=== PATIENT | male | born 1935 | race Caucasian/White ===

== ENCOUNTER 2018-02-14 20:38 | Emergency (ER) | payer MEDICARE, BC ==
[2018-02-14] MEDS ORDERED: Aspirin 81 mg CHEW TAB* 81 MG TAB.CHEW PO ONE (21:14)
[2018-02-14] MEDS ORDERED: Morphine INJ* 4 MG/ML 1 ML CARPUJECT IV ONE (21:14)
[2018-02-14] MEDS ORDERED: Ondansetron ODT TAB* 4 MG PO ONE (21:14)
[2018-02-14] MEDS ORDERED: Morphine VIAL* 4 MG/ML VIAL (1 ml vial) IV ONE ×2 (21:28→21:31)
[2018-02-14] MEDS ORDERED: Azithromycin IV(*) 500 MG in NS 0.9% 250 ML* 250 ML IVPB ONE (21:30)
[2018-02-14] MEDS ORDERED: cefTRIAXone(*) 1 GM in NS 0.9% 50 ML* 50 ML IVPB ONE (21:30)
[2018-02-14 21:42] LABS: ABS Basophils 0.1 10^3/ul (0-0.2); ABS Eosinophils 0.1 10^3/ul (0-0.6); ABS Lymphocytes 2.4 10^3/ul (1.0-4.8); ABS Monocytes 0.7 10^3/ul (0-0.8); ABS Neutrophils 7.7 10^3/ul (1.5-7.7); ABS Nucleated RBC 0 10^3/ul; Hematocrit 41 % (42-52); Hemoglobin 13.6 g/dl (14.0-18.0); Lymphocyte % 22.2 % (25-47); Mean Corpuscular HGB Conc 34 g/dl (31-36); Mean Corpuscular Hemoglobin 33 pg (27-31); Mean Corpuscular Volume 100 fL (80-94); Mean Platelet Volume 8.4 um3 (7.4-10.4); Nucleated Red Blood Cells % 0; Platelet Count 228 10^3/ul (150-450); Red Cell Distribution Width 14 % (10.5-15)
--- NOTE | 2018-02-14 21:44 | RAD ---
INDICATION: Left sided chest pain. COMPARISON: Comparison is made with a prior chest x-ray study from August 18, 2004. TECHNIQUE: A portable view of the chest was obtained. FINDINGS: The heart appears within normal limits in size. There is a moderate size infiltrate at the left lung base and a small left pleural effusion. The right lung appears clear. No pneumothorax is seen. There is lucency at the base of the neck on the left side possibly representing subcutaneous emphysema. IMPRESSION: 1. LEFT BASILAR INFILTRATE AND PLEURAL EFFUSION. 2. POSSIBLE SUBCUTANEOUS EMPHYSEMA AT THE BASE OF THE NECK ON THE LEFT SIDE.
[2018-02-14 21:54] LABS: EGFR Non-African American 54.6 (>60)
[2018-02-14] MEDS ORDERED: Iodixanol* (CONTRAST) 320 MG/ML 100 ML SDV IV ONE (22:14)
[2018-02-14] MEDS ORDERED: Propofol* 100 ML ONE (22:41)
[2018-02-14] MEDS ORDERED: Etomidate* 2 MG/ML 20 ML VIAL (40 MG) ONE (22:42)
[2018-02-14] MEDS ORDERED: Succinylcholine* 20 MG/ML 10 ML VIAL ONE (22:43)
[2018-02-14] MEDS ORDERED: Succinylcholine* 20 MG/ML 10 ML VIAL IV ONE (22:45)
[2018-02-14] MEDS ORDERED: Etomidate* 2 MG/ML 10 ML VIAL IV ONE (22:45)
[2018-02-14 22:59] LABS: INR 0.86 (0.77-1.02)
[2018-02-14] MEDS ORDERED: Propofol* 500 MG/50 ML BTL IV SCH (23:00)
[2018-02-14] MEDS ORDERED: NS 0.9% 1000 ML* 1,000 ML IV ONE (23:54)
--- NOTE | 2018-02-15 00:43 | ED ---
Sandra Wyatt Simon, scribed for Constantine Gilliam MD on 02/14/18 at 2156 . HPI Chest Pain - HPI Summary HPI Summary: This patient is a 82 year old M presenting to [facility] accompanied by friends with a chief complaint of left lateral chest pain starting about 90 minutes ago of a 8/10 severity. He endorsed the pain as sudden onset, endorses one episode of vomiting prior to the chest pain starting severely. And heavy diaphoresis. Denies dyspnea, abd pain, cough BP, jaw pain, arm pain, pain radiation to groin , pedal edema. Pt ate at 1830. Pt sleeps 1 flat pillow at night. FHx splenectomy (mother). - History of Current Complaint Chief Complaint: EDChestPainROMI Hx Obtained From: Patient, Other: - friend Onset/Duration: Started Hours Ago - 1.5 hours, Still Present Timing: Constant, Lasting Hours Initial Severity: Severe Current Severity: Severe Pain Intensity: 8 Pain Scale Used: 0-10 Numeric Chest Pain Location: Discrete at:, Left Lateral Chest Pain Radiates: No Character: Sharp/Stabbing Aggravating Factor(s): Movement Alleviating Factor(s): Nothing Associated Signs and Symptoms: Positive: Chest Pain, Diaphoresis - heavy, Vomiting, Other: - crackles (worse on L), denies jaw pain, groin pain, arm pain. Negative: Shortness of Breath, Nausea, Cough, Back Pain, Abdominal Pain, Edema - Allergy/Home Medications Allergies/Adverse Reactions: Allergies Allergy/AdvReac Type Severity Reaction Status Date / Time No Known Allergies Allergy Verified 02/14/18 21:18 Home Medications: Home Medications NK [No Home Medications Reported] 02/14/18 [History Confirmed 02/14/18] PMH/Surg Hx/FS Hx/Imm Hx Previously Healthy: No - UNKNOWN Endocrine/Hematology History: Denies: Hx Diabetes Cardiovascular History: Denies: Hx Coronary Artery Disease, Hx Hypertension Sensory History: Denies: Hx Legally Blind, Hx Deafness Opthamlomology History: Denies: Hx Legally Blind EENT History: Denies: Hx Deafness Infectious Disease History: No Infectious Disease History: Denies: Traveled Outside the [place] in Last 30 Days - Family History Known Family History: Positive: Cardiac Disease - MS sister, Other - [place] "universally" on mothers side - Social History Occupation: Retired Alcohol Use: Occasionally Hx Substance Use: No Substance Use Type: Reports: None Hx Tobacco Use: No Review of Systems Positive: Skin Diaphoresis - severe. Negative: Fever, Chills Negative: Erythema Negative: Sore Throat Positive: Chest Pain - left lateral Negative: Shortness Of Breath, Cough Positive: Vomiting. Negative: Abdominal Pain, Nausea Negative: dysuria, hematuria Negative: Myalgia, Edema Negative: Rash Neurological: Other - NEGATIVE: dizziness All Other Systems Reviewed And Are Negative: Yes Physical Exam - Summary Physical Exam Summary: Constitutional: Well-developed, Well-nourished, Alert. (+) severe pain distressed Skin: Warm, Dry HENT: Normocephalic; Atraumatic Eyes: Conjunctiva normal Neck: Musculoskeletal ROM normal neck. (-) JVD, (-) Stridor, (-) Tracheal deviation Cardio: Rhythm regular, rate normal, Heart sounds normal; Intact distal pulses; The pedal pulses are 2+ and symmetric. Radial pulses are 2+ and symmetric. (-) Murmur Pulmonary/Chest wall: Effort normal. (+) Respiratory distress, (-) Wheezes, (-) Rales (+) crackles (worse on left side) Abd: Soft, (-), epigastric tenderness, (-) Distension, (-) Guarding, (-) Rebound , no abd pain Musculoskeletal: (-) Edema Lymph: (-) Cervical adenopathy Neuro: Alert, Oriented x3 Psych: Mood and affect Normal Triage Information Reviewed: Yes Vital Signs On Initial Exam: Initial Vitals Temp Pulse Resp BP Pulse Ox 98.8 F 78 24 112/74 96 02/14/18 20:57 02/14/18 20:57 02/14/18 20:57 02/14/18 20:57 02/14/18 20:57 Vital Signs Reviewed: Yes Procedures - Procedure Summary Procedure Summary: Additional procedure: Procedure name. Needle decompression l chest indication: for developing tension hydrothorax left chest. Consent: Emergent, family no longer at the bedside Details: The left chest wall, second intercostal space, midclavicular was prepped with Betadine, a 3 inch 14-gauge Angiocath was inserted, immediately there was yellow fluid bubbling from the catheter, increased ventilations. No appreciable jordan of air. - Chest Tube Left Upper Anterior Chest Tube Location: fifth interspace Size of Chinese Tube (cm): 32 Chest Tube Procedure: betadine prep, sterile drapes applied, sterile dressing applied Anesthesia: 1% Lidocaine Volume Anesthetic (ccs): 3 Jordan of Air Sterling: No - IMMEDIATE RETURN OF BLOODY/YELLOW TINGED FLUID/GASTRIC CONTENTS Time of Successful Intubation: 23:45 Tube Drainage: see nurses notes - 450 ML BLOODY/YELLOW TINGED FLUID AND GASTRIC CONTENTS Tube Sutured to Skin: Yes - SUTURED AND HEAVILY BANDAGED/ADHESIVE TAPE Post Procedure CXR?: Yes - Intubation Time of Intubation: 22:30 Intubation Method: orotracheal Tube Size (cm): 7.5 Medications: Succinylcholine Breath Sounds after Intubation: left greater than right - RIGHT WITH RALES (PRE- PROCEDURE CONDITION) Intubation Complications: O2 saturation decreased - PT DIFFICULT TO BAG, SATS SLOW TO COME UP - SUSPECT SLOW DEVELOPMENT OF TENSION HYDROTHORAX Post Intubation Xray: Yes - ETT/CHEST TUBE IN PLACE Diagnostics - Vital Signs Vital Signs Temp Pulse Resp BP Pulse Ox 02/14/18 20:57 98.8 F 78 24 112/74 96 - Laboratory Lab Results: Lab Results 02/14/18 02/14/18 02/14/18 Range/Units 21:29 21:29 21:30 WBC 11.0 H (3.5-10.8) 10^3/ul RBC 4.10 (4.00-5.40) 10^6/ul Hgb 13.6 L (14.0-18.0) g/dl Hct 41 L (42-52) % MCV 100 H (80-94) fL MCH 33 H (27-31) pg MCHC 34 (31-36) g/dl RDW 14 (10.5-15) % Plt Count 228 (150-450) 10^3/ul MPV 8.4 (7.4-10.4) um3 Neut % (Auto) 70.1 (38-83) % Lymph % (Auto) 22.2 L (25-47) % Campbell % (Auto) 6.1 (0-7) % Eos % (Auto) 1.0 (0-6) % Baso % (Auto) 0.6 (0-2) % Absolute Neuts (auto) 7.7 (1.5-7.7) 10^3/ul Absolute Lymphs (auto) 2.4 (1.0-4.8) 10^3/ul Absolute Monos (auto) 0.7 (0-0.8) 10^3/ul Absolute Eos (auto) 0.1 (0-0.6) 10^3/ul Absolute Basos (auto) 0.1 (0-0.2) 10^3/ul Absolute Nucleated RBC 0 10^3/ul Nucleated RBC % 0 INR (Anticoag Therapy) 0.86 (0.77-1.02) Sodium (139-145) mmol/L Potassium (3.5-5.0) mmol/L Chloride (101-111) mmol/L Carbon Dioxide (22-32) mmol/L Anion Gap (2-11) mmol/L BUN (6-24) mg/dL Creatinine (0.67-1.17) mg/dL Est GFR ( Amer) (>60) Est GFR (Non-Af Amer) (>60) BUN/Creatinine Ratio (8-20) Glucose (70-100) mg/dL Lactic Acid (0.5-2.0) mmol/L Calcium (8.6-10.3) mg/dL Total Bilirubin (0.2-1.0) mg/dL AST (13-39) U/L ALT (7-52) U/L Alkaline Phosphatase (34-104) U/L Troponin I (<0.04) ng/mL B-Natriuretic Peptide 37 ( - 100) pg/mL Total Protein (6.4-8.9) g/dL Albumin (3.2-5.2) g/dL Globulin (2-4) g/dL Albumin/Globulin Ratio (1-3) Lipase (11.0-82.0) U/L Blood Type Antibody Screen 02/14/18 02/14/18 02/14/18 Range/Units 21:30 21:30 21:30 WBC (3.5-10.8) 10^3/ul RBC (4.00-5.40) 10^6/ul Hgb (14.0-18.0) g/dl Hct (42-52) % MCV (80-94) fL MCH (27-31) pg MCHC (31-36) g/dl RDW (10.5-15) % Plt Count (150-450) 10^3/ul MPV (7.4-10.4) um3 Neut % (Auto) (38-83) % Lymph % (Auto) (25-47) % Campbell % (Auto) (0-7) % Eos % (Auto) (0-6) % Baso % (Auto) (0-2) % Absolute Neuts (auto) (1.5-7.7) 10^3/ul Absolute Lymphs (auto) (1.0-4.8) 10^3/ul Absolute Monos (auto) (0-0.8) 10^3/ul Absolute Eos (auto) (0-0.6) 10^3/ul Absolute Basos (auto) (0-0.2) 10^3/ul Absolute Nucleated RBC 10^3/ul Nucleated RBC % INR (Anticoag Therapy) (0.77-1.02) Sodium 140 (139-145) mmol/L Potassium 3.7 (3.5-5.0) mmol/L Chloride 105 (101-111) mmol/L Carbon Dioxide 22 (22-32) mmol/L Anion Gap 13 H (2-11) mmol/L BUN 10 (6-24) mg/dL Creatinine 1.27 H (0.67-1.17) mg/dL Est GFR ( Amer) 70.2 (>60) Est GFR (Non-Af Amer) 54.6 (>60) BUN/Creatinine Ratio 7.9 L (8-20) Glucose 176 H (70-100) mg/dL Lactic Acid 5.4 H* (0.5-2.0) mmol/L Calcium 9.0 (8.6-10.3) mg/dL Total Bilirubin 0.50 (0.2-1.0) mg/dL AST 18 (13-39) U/L ALT 16 (7-52) U/L Alkaline Phosphatase 68 (34-104) U/L Troponin I 0.00 (<0.04) ng/mL B-Natriuretic Peptide ( - 100) pg/mL Total Protein 6.6 (6.4-8.9) g/dL Albumin 3.9 (3.2-5.2) g/dL Globulin 2.7 (2-4) g/dL Albumin/Globulin Ratio 1.4 (1-3) Lipase 18 (11.0-82.0) U/L Blood Type O Positive Antibody Screen Negative Result Diagrams: 02/14/18 21:30 02/14/18 21:30 Lab Statement: Any lab studies that have been ordered have been reviewed, and results considered in the medical decision making process. - Radiology CXR Xray Interpretation: Positive (See Comments) Radiology Interpretation Completed By: ED Physician - left pleural effusion vs infiltrate, Radiologist - 1. LEFT BASILAR INFILTRATE AND PLEURAL EFFUSION. 2. POSSIBLE SUBCUTANEOUS EMPHYSEMA AT THE BASE OF THE NECK ON THE LEFT SIDE. Dr. Gilliam has reviewed this radiology report. No standard instances Xray Interpretation: Positive (See Comments) Radiology Interpretation Completed By: ED Physician - Postintubation and chest tube insertion x-ray reveals an ETT above the cintia, left chest tube is in place in the thoracic cavity. No appreciable pneumothorax. - EKG 2057 Cardiac Rate: NL - 92 EKG Rhythm: Sinus Rhythm ST Segment: Normal Ectopy: PVCs - frequent EKG Interpretation: No STEMI, frequent PVCs Re-Evaluation - Re-Evaluation First Eval Re-Evaluation Time: 21:23 Change: Unchanged Comment: Checking for status changes in pt. Second Eval Re-Evaluation Time: 21:32 Comment: updated family on CXR, wet read left pleural effusion vs infiltrate Third Eval Re-Evaluation Time: 21:45 Change: Improved Comment: To see if medications improved Sx Fourth Eval Re-Evaluation Time: 22:15 Change: Worse - The patient is increasingly to Neck, somewhat despondent. Due to the findings of free air that I'm visualizing on the CT, I'm concerned this patient will require thoracic surgery. Discussed with his the need for emergent intubation and airway control, she understands that he could destabilize with airway management or during transport. She understands that his prognosis is extremely guarded and/or poor. After intubation, the radiologist called me with the finding of small amount of pneumothorax, I did notice slowly elevating peak pressures on the ventilator, emergently there was decompression. I placed a chest tube under emergent consent, ventilations immediately became easier. Chest Pain Course/Dx - Course Course Of Treatment: This patient is a 82 year old M with a chief complaint of left lateral chest pain starting about 90 minutes ago of a 8/10 severity. He endorsed the pain as sudden onset, endorses mild emesis, and heavy diaphoresis. Denies dyspnea, abd pain, cough BP, jaw pain, arm pain, pain radiation to groin , pedal edema. CXR (+) wet read pleural effusion vs infiltrate. radiologist: 1. LEFT BASILAR INFILTRATE AND PLEURAL EFFUSION. 2. POSSIBLE SUBCUTANEOUS EMPHYSEMA AT THE BASE OF THE NECK ON THE LEFT SIDE. Pt given Azithromycin, Ceftriaxone, ASA, Morphine sulfate, Zofran. EKG No STEMI, frequent PVC's. Initial suspicion was for medical etiology of pleural effusion and/or pneumonia , patient decompensated in the emergency department over the course of present 90 minutes. He requires transfer for thoracic surgery consultation, a strong consideration was for esophageal perforation given the history. - Diagnoses Provider Diagnoses: Pleural effusion, Pleuritic chest pain, Pneumomediastinum, Hydrothorax, Pneumothorax on left, Esophageal perforation - Critical Care Time Critical Care Time: 75-104 min Discharge - Sign-Out/Discharge Documenting (check all that apply): Discharge/Admit/Transfer - Discharge Plan Condition: Critical Disposition: TRANS HIGHER LVL OF CARE FAC Referrals: Phoenix Ley MD [Primary Care Provider] - - Billing Disposition and Condition Condition: CRITICAL Disposition: Trans Higher Lvl of Care Fac The documentation as recorded by the Sandra cruz Simon accurately reflects the service I personally performed and the decisions made by , Constantine Gilliam MD.
[2018-02-15 01:05] VITALS: BP 135/86
--- NOTE | 2018-02-15 07:44 | RAD ---
HISTORY: SEVERE L CP, SUDDEN, EVAL FOR PE, shortness of breath, vomiting, emphysema, chest pain COMPARISONS: None TECHNIQUE: Multiple contiguous axial CT scans of the chest were obtained after the administration of nonionic intravenous contrast, timed to the pulmonary arterial phase of contrast enhancement.. Coronal and sagittal multiplanar reformations are also submitted for review. FINDINGS: NECK AND THYROID: There is saphenous emphysema along the lower neck. CHEST WALL: There is no lower cervical, axillary, or supraclavicular lymphadenopathy by size criteria. HEART AND PERICARDIUM: Coronary and valvular cardiac calcifications are noted. AORTA AND PULMONARY VASCULATURE: There is no pulmonary arterial filling defect to suggest pulmonary embolism. There is atherosclerosis of the thoracic aorta. The trace thoracic dissection noted in the pulmonary report is not clearly appreciated on the current examination.. MEDIASTINUM: There is pneumomediastinum. ZACH: There is no hilar lymphadenopathy by size criteria. AIRWAY AND ESOPHAGUS: The airway is unremarkable, without endobronchial filling defect. The esophagus is grossly normal. LUNG PARENCHYMA: There is compressive atelectasis of the left lower lobe. PLEURA: There is a large left pleural effusion with a small right pleural effusion. There is a small left-sided pneumothorax. UPPER ABDOMEN: There is a small hiatal hernia. BONES AND SOFT TISSUES: Degenerative changes are noted of the spine. As noted above, there is subcutaneous emphysema. OTHER: None. IMPRESSION: 1. PNEUMOMEDIASTINUM WITH A SMALL LEFT-SIDED PNEUMOTHORAX. 2. LARGE LEFT PLEURAL EFFUSION WITH SMALL RIGHT PLEURAL EFFUSION. 3. NO PULMONARY ARTERIAL FILLING DEFECT TO SUGGEST PULMONARY EMBOLUS. PRELIMINARY FINDINGS WERE DISCUSSED WITH DR. IZAGUIRRE IN THE EMERGENCY DEPARTMENT BY DR. ZEPEDA ON FEBRUARY 14, 2018.
--- NOTE | 2018-02-15 07:47 | RAD ---
HISTORY: SOB/VOMITING, ?EMPHYSEMA COMPARISONS: CT of the chest dated February 14, 2019 TECHNIQUE: Multiple contiguous axial CT scans were obtained of the neck after the administration of nonionic intravenous contrast, with coronal and sagittal multiplanar reformations. FINDINGS: The study is limited by patient motion artifact. BRAIN AND ORBITS: The visualized brain and orbits are normal. PARANASAL SINUSES: The visualized paranasal sinuses are clear. SALIVARY GLANDS: The parotid glands, submandibular glands, sublingual glands are normal. NASAL CAVITY/NASOPHARYNX: There is retropharyngeal and prevertebral subcutaneous emphysema. ORAL CAVITY/OROPHARYNX: There is retropharyngeal and prevertebral subcutaneous emphysema. There is extensive emphysema in the para pharyngeal spaces. LARYNGEAL APPARATUS/HYPOPHARYNX: There is retropharyngeal and parapharyngeal prevertebral subcutaneous emphysema. UPPER AIRWAY/UPPER ESOPHAGUS: There is simultaneous emphysema tracking along the upper airway and esophagus. LUNG APICES: As noted on the CT of the chest, there is a large left pleural effusion with a small left pneumothorax. There is pneumomediastinum. THYROID GLAND: The thyroid gland is normal. LYMPH NODES: There is no lymphadenopathy by size criteria. VASCULATURE: There is subcutaneous emphysema within the carotid spaces bilaterally. BONES AND SOFT TISSUES: There is extensive subcutaneous emphysema within the deep spaces of the neck, greater on the left than on the right. OTHER: None. IMPRESSION: 1. EXTENSIVE SUBCUTANEOUS EMPHYSEMA DESCRIBED ABOVE. 2. NOTED ON THE CT OF THE CHEST, THERE IS A LARGE LEFT PLEURAL EFFUSION WITH A SMALL LEFT PNEUMOTHORAX, AND PNEUMOMEDIASTINUM
--- NOTE | 2018-02-15 07:51 | RAD ---
INDICATION: Chest tube placement COMPARISON: CTA chest February 14, 2018 TECHNIQUE: An AP portable view obtained at 0006 hours is submitted. FINDINGS: Bones/Soft Tissues: There is small amount of subcutaneous emphysema and there is mild pneumomediastinum. There is interval placement of left-sided chest tube. There is no definitive pneumothorax. Cardiomediastinal: The heart is normal in size. Lungs: There is airspace disease in left lung base with mild improved aeration. Pleura: Small left-sided pleural effusion with interval decrease in size. Other: None IMPRESSION: LEFT-SIDED CHEST TUBE. MILD IMPROVED AERATION LEFT LUNG BASE. NO PLAIN RADIOGRAPHIC EVIDENCE OF PNEUMOTHORAX. MILD SUBCUTANEOUS EMPHYSEMA AND PNEUMOMEDIASTINUM
== END 2018-02-14 23:33 | disposition short-term general hospital (02) ==
LOC: ED 20:38
DX: J90 Pleural effusion, not elsewhere classified (principal); R07.81 Pleurodynia; J98.2 Interstitial emphysema; J94.8 Other specified pleural conditions; J93.9 Pneumothorax, unspecified; K22.3 Perforation of esophagus; Z82.49 Family history of ischemic heart disease and other diseases of the circulatory system
CPT/HCPCS: 32551; 36415; 70491; 71045; 71275; 80053; 83605; 83690; 83880; 84484; 85025; 85610; 86850; 86900; 86901; 87040; 93005; 96365; 96375; 99284; A9270-GY; J0330; J0456; J0696; J2270; J2704; Q9967